=== PATIENT | female | born 1950 | race Caucasian/White ===

== ENCOUNTER → 2023-09-18 10:39 | Outpatient (BNVA) | payer MEDICARE, SELFPAY | PROVIDERS: Family Provider Student in an Organized Health Care Education/Training Program; PCP Physician Assistant; Visit Provider Psychiatry & Neurology Neurology | DX: G44.329 Chronic post-traumatic headache, not intractable (principal) | CPT/HCPCS: 99203 ==

== ENCOUNTER 2023-11-01 09:48 | Outpatient (CLI) | payer MEDICARE, SELFPAY ==
--- NOTE | 2023-11-01 11:00 | MR_ITS ---
WS: [id number] MRI HEAD WITHOUT CONTRAST TECHNIQUE: Sagittal T1, T2 axial, T2 axial FLAIR, axial and coronal T1 images, axial susceptibility w eighted imaging, axial diffusion weighted images, and coronal T2 images were obtained. CLINICAL INFORMATION: R51.9 - Headache, unspecified COMPARISON: None. FINDINGS: No evidence of restricted diffusion to suggest acute ischemia. Ventricular system and basal cisterns are patent. Mild central canal stenosis in the upper cervical spine partially visualized. Moderate sm all vessel changes. Moderate parenchymal volume loss. Chronic lacunar infarcts in the RIGHT cerebellu m. Normal vascular flow voids at the skull base. No extra-axial fluid collections. Paranasal sinuses and mastoid air cells are well aerated. Chronic encephalomalacia at the LEFT frontoparietal junction. Small chronic infarct with encephalomalacia and gliosis involving the LEFT parasagittal occipital lob e. No hemosiderin on the susceptibly weighted images. Normal optic chiasm and pituitary infundibulum. Mild symmetric atrophy temporal lobes and hippocampal formations. MR/MR head wo con* [id number] IMPRESSION: 1. No evidence of restricted diffusion to suggest acute ischemia. 2. Moderate small vessel changes with moderate parenchymal volume loss. 3. Multiple chronic lacunar infarcts in the RIGHT cerebellum. 4. Small chronic cortical infarct involving the LEFT parasagittal occipital lo be with encephalomalacia and gliosis. 5. No hemosiderin on susceptibly weighted images. 6. Mild symmetric atrophy temporal lobes and hippocampal formations. 7. Chronic encephalomalacia of the LEFT frontoparietal junction. 8. Mild central canal stenosis in the upper cervical spine
== END 2023-11-01 09:49 | disposition home or self-care (01) ==
LOC: RAD 09:48
PROVIDERS: Family Provider Student in an Organized Health Care Education/Training Program; PCP Physician Assistant; Visit Provider Psychiatry & Neurology Neurology
DX: R51.9 Headache, unspecified (principal); I67.89 Other cerebrovascular disease; G31.89 Other specified degenerative diseases of nervous system; I63.81 Other cerebral infarction due to occlusion or stenosis of small artery; G93.89 Other specified disorders of brain
CPT/HCPCS: 70551

== ENCOUNTER → 2024-02-03 14:56 | Outpatient (BNVA) | payer MEDICARE, OTHER, SELFPAY | PROVIDERS: Family Provider Student in an Organized Health Care Education/Training Program; PCP Physician Assistant; Visit Provider Psychiatry & Neurology Neurology | DX: G44.329 Chronic post-traumatic headache, not intractable (principal); N18.30 Chronic kidney disease, stage 3 unspecified; I10 Essential (primary) hypertension | CPT/HCPCS: 99212; 99213 ==